=== PATIENT | male | born 1970 | race Caucasian/White ===

== ENCOUNTER 2017-07-03 08:56 | Outpatient (CLI) | payer MEDICAID ==
--- NOTE | 2017-07-06 13:07 | XRAY Report ---
THREE-VIEW RIGHT ELBOW: 07/03/2017 CLINICAL INDICATION: Pain. FINDINGS: AP, lateral, oblique views of the right elbow demonstrate no evidence of acute fracture or dislocation. Mild degenerative changes are seen, with small osteophytes. No effusion is present. IMPRESSION: MILD OSTEOARTHRITIS. NO EVIDENCE OF FRACTURE. [place]/ TD: 07/03/2017 16:30 [facility]
== END 2017-07-03 08:57 | disposition home or self-care (01) ==
LOC: DI.S 08:56
PROVIDERS: ATTEND Family Medicine
DX: M19.021 Primary osteoarthritis, right elbow (principal)

== ENCOUNTER 2017-10-11 09:38 | Outpatient (CLI) | payer MEDICAID ==
--- NOTE | 2017-10-11 10:56 | XRAY Report ---
TWO VIEW CHEST X-RAY: 10/11/2017 CLINICAL INDICATION: Shortness of breath. COMPARISON: 11/09/2015. FINDINGS: Frontal and lateral views of the chest demonstrate a normal cardiac silhouette. The lungs are clear. No effusion or pneumothorax is present. IMPRESSION: NORMAL CHEST, UNCHANGED. TD: 10/11/2017 10:55
== END 2017-10-11 09:39 | disposition home or self-care (01) ==
LOC: DI.S 09:38
PROVIDERS: ATTEND Nurse Practitioner Family
DX: R06.02 Shortness of breath (principal)
CPT/HCPCS: 71046

== ENCOUNTER 2018-12-13 09:28 | Outpatient (CLI) | payer MEDICAID ==
[2018-12-13 17:26] LABS: BASOPHILS # (AUTO) 0.1 10^3/uL (0.0-0.1); EOSINOPHILS # (AUTO) 0.1 10^3/uL (0.0-0.7); EOSINOPHILS % (AUTO) 2.6 %; LYMPHOCYTES # (AUTO) 2.2 10^3/uL (1.5-3.5); LYMPHOCYTES % (AUTO) 37.1 %; MEAN CORPUSCULAR HGB CONC 33.2 g/dL (32.0-36.0); MEAN CORPUSCULAR VOLUME 87.1 fL (80.0-94.0); MEAN PLATELET VOLUME 8.8 fL (7.4-11.4); MONOCYTES # (AUTO) 0.5 10^3/uL (0.0-1.0); NEUTROPHILS # (AUTO) 2.9 10^3/uL (1.5-6.6); NEUTROPHILS % (AUTO) 50.3 %; PLT - PLATELET COUNT 261 10^3/uL (130-450); RED BLOOD COUNT 5.17 10^6/uL (4.70-6.10); RED CELL DISTRIBUTION WIDTH 12.9 % (12.0-15.0); WHITE BLOOD COUNT 5.8 x10^3/uL (4.8-10.8)
[2018-12-13 17:32] LABS: ALBUMIN 4.7 g/dL (3.2-5.5); ALBUMIN/GLOBULIN RATIO 1.7 (1.0-2.2); BILIRUBIN,TOTAL 0.6 mg/dL (0.2-1.0); CALCIUM 9.6 mg/dL (8.5-10.3); CREATININE 0.9 mg/dL (0.6-1.2); CRP - C-REACTIVE PROTEIN 1.1 mg/dL (0-1.0); TOTAL PROTEIN 7.5 g/dL (6.7-8.2); URIC ACID 7.6 mg/dL (2.6-7.2)
== END 2018-12-13 09:29 | disposition home or self-care (01) ==
LOC: LAB.F 09:28
PROVIDERS: ATTEND Physician Assistant Medical
DX: I10 Essential (primary) hypertension (principal); M10.9 Gout, unspecified; M13.0 Polyarthritis, unspecified
CPT/HCPCS: 36415; 80053; 84550; 85025; 85651; 86140

== ENCOUNTER 2021-08-24 09:41 | Outpatient (CLI) | payer MEDICAID ==
[2021-08-24 14:47] LABS: ALBUMIN 4.8 g/dL (3.2-5.5); ALBUMIN/GLOBULIN RATIO 1.6 (1.0-2.2); BILIRUBIN,TOTAL 0.9 mg/dL (0.2-1.0); CALCIUM 9.4 mg/dL (8.5-10.3); CREATININE 0.9 mg/dL (0.6-1.2); POTASSIUM 4.6 mmol/L (3.5-5.0); TOTAL PROTEIN 7.8 g/dL (6.7-8.2)
[2021-08-24 15:10] LABS: BASOPHILS # (AUTO) 0.1 10^3/uL (0.0-0.1); BASOPHILS % (AUTO) 0.5 %; EOSINOPHILS # (AUTO) 0.1 10^3/uL (0.0-0.7); EOSINOPHILS % (AUTO) 0.9 %; HCT - HEMATOCRIT 46.2 % (42.0-52.0); HGB - HEMOGLOBIN 15.6 g/dL (14.0-18.0); LYMPHOCYTES % (AUTO) 20.4 %; MEAN CORPUSCULAR HEMOGLOBIN 30.2 pg (27.0-31.0); MEAN CORPUSCULAR HGB CONC 33.8 g/dL (32.0-36.0); MEAN CORPUSCULAR VOLUME 89.4 fL (80.0-94.0); MEAN PLATELET VOLUME 10.3 fL (7.4-11.4); MONOCYTES # (AUTO) 0.7 10^3/uL (0.0-1.0); MONOCYTES % (AUTO) 7.4 %; NEUTROPHILS % (AUTO) 70.6 %; PLT - PLATELET COUNT 252 10^3/uL (130-450); RED BLOOD COUNT 5.17 10^6/uL (4.70-6.10); RED CELL DISTRIBUTION WIDTH 12.1 % (12.0-15.0); WHITE BLOOD COUNT 9.9 x10^3/uL (4.8-10.8)
[2021-08-24 15:21] LABS: THYROID STIMULATING HORMONE 1.52 uIU/mL (0.34-5.60)
== END 2021-08-24 09:42 | disposition home or self-care (01) ==
LOC: LAB.S 09:41
PROVIDERS: ATTEND Physician Assistant Medical
DX: I10 Essential (primary) hypertension (principal)
CPT/HCPCS: 36415; 80050

== ENCOUNTER 2023-03-01 08:43 | Outpatient (CLI) | payer MEDICAID ==
[2023-03-01 15:19] LABS: BUN - BLOOD UREA NITROGEN 20 mg/dL (6-20); CALCIUM 9.5 mg/dL (8.5-10.3); CARBON DIOXIDE - CO2 24 mmol/L (21-32); CHLORIDE 106 mmol/L (101-111); CHOL/HDL RATIO 5.6 (<5.0); CHOLESTEROL 225 mg/dL; CREATININE 0.9 mg/dL (0.6-1.2); GFR - MDRD 89 (>89); GLUCOSE 102 mg/dL (70-100); HDL CHOLESTEROL 40 mg/dL; LDL CHOLESTEROL,CALCULATED 156 mg/dL; LDL/HDL RATIO 3.9 (<3.6); POTASSIUM 4.7 mmol/L (3.5-5.0); SODIUM 136 mmol/L (135-145); TRIGLYCERIDES 143 mg/dL; VLDL CHOLESTEROL 29 mg/dL
[2023-03-03 11:13] LABS: ALDOLASE 4.1 U/L (3.3-10.3)
== END 2023-03-01 08:44 | disposition home or self-care (01) ==
LOC: LAB.S 08:43
PROVIDERS: ATTEND Internal Medicine Cardiovascular Disease
DX: I10 Essential (primary) hypertension (principal); R06.09 Other forms of dyspnea; R94.31 Abnormal electrocardiogram [ECG] [EKG]; R00.2 Palpitations
CPT/HCPCS: 36415; 80048; 80061; 82085; 83721; 83835

== ENCOUNTER 2023-03-06 08:00 | Outpatient (CLI) | payer MEDICAID ==
--- NOTE | 2023-03-06 16:37 | XRAY Report ---
PROCEDURE: Hand 3 View RT INDICATIONS: RIGHT HAND PAIN TECHNIQUE: 3 views of the hand(s) acquired. COMPARISON: None. FINDINGS: Bones: No fractures or dislocations. No suspicious bony lesions. . Minimal first CMC narrowing wit hout erosions.. Soft tissues: No suspicious soft tissue calcifications or masses. IMPRESSION: Very minimal first CMC degenerative narrowing. Reviewed by: Shawna Ramirez MD on 03/06/2023 4:35 PM PDT Approved by: Shawna Ramirez MD on 03/06/2023 4:35 PM PDT Station ID: [id number]
== END 2023-03-06 23:59 | disposition home or self-care (01) ==
LOC: DI.S 08:00
PROVIDERS: ATTEND Physician Assistant
DX: M18.11 Unilateral primary osteoarthritis of first carpometacarpal joint, right hand (principal)

== ENCOUNTER 2023-05-20 11:10 | Emergency (ER) | payer MEDICAID ==
--- NOTE | 2023-05-20 11:57 | ED Physician Documentation ---
PD HPI URI - Stated complaint Stated Complaint: FEVER/BODY ACHES/HEAD PX - Chief complaint Chief Complaint: General - History obtained from History obtained from: Patient - History of Present Illness Timing - onset: How many weeks ago (2) Timing duration: Weeks (2) Timing details: Abrupt onset, Still present (he was initially ill 2 weeks ago with fevers, chills, some cough, body aches and weakness for several days. Slow improvement over few days and then was feeling moderately better though still weak and achy for 4-5 days. Now with recurrence of aches/weakness/ fevers again the past 2 days.), Waxing and waning Associated symptoms: Fever, Chills. No: Nasal congestion, Rhinorrhea, Sore throat, Dry cough, Productive cough, NVD Contributing factors: Travel (prior to illness initially, he and were in [facility] for a week. No camping. Not aware of skin rashes, sores, tick bites, wounds with infections, etc. Not drinking groundwater.). No: Sick contact Improves by: Medication (brief improvement with Tylenol.) Similar symptoms before: No diagnosis (tested neg for COVID with initial illness. No other testing. Presumed flu-like illness.) Review of Systems Constitutional: reports: Fever, Chills, Myalgias, Fatigue Nose: denies: Rhinorrhea / runny nose, Congestion Throat: denies: Sore throat Cardiac: denies: Chest pain / pressure Respiratory: denies: Cough GI: reports: Abdominal Pain (some abd pain upper to left abd.), Nausea. denies: Abdominal Swelling, Vomiting, Constipation, Diarrhea : reports: Dysuria (stings when urinates and states it is darker color the past 2 days.). denies: Frequency Skin: denies: Rash, Lesions Neurologic: reports: Generalized weakness. denies: Near syncope, Altered mental status, Headache, Head injury PD PAST MEDICAL HISTORY - Past Medical History Past Medical History: Yes Cardiovascular: Hypertension Respiratory: None Neuro: None Endocrine/Autoimmune: None Musculoskeletal: Gout - Past Surgical History Past Surgical History: No - Present Medications Home Medications: Ambulatory Orders Medication Instructions Recorded Confirmed Lisinopril [Zestril] 20 mg PO DAILY 05/20/23 05/20/23 allopurinoL [Zyloprim] 100 mg PO DAILY 05/20/23 05/20/23 - Allergies Allergies/Adverse Reactions: Allergies Allergy/AdvReac Type Severity Reaction Status Date / Time No Known Drug Allergies Allergy Verified 05/20/23 11:36 - Social History Does the pt smoke?: No Smoking Status: Never smoker Does the pt drink ETOH?: Yes Does the pt have substance abuse?: No - Immunizations Immunizations are current?: No PD ED PE NORMAL - Vitals Vital signs reviewed: Yes - General General: Alert and oriented X 3, No acute distress, Well developed/nourished - HEENT HEENT: Ears normal, Pharynx benign - Neck Neck: Supple, no meningeal sign, No adenopathy - Cardiac Cardiac: RRR, No murmur - Respiratory Respiratory: Clear bilaterally - Abdomen Abdomen: Normal bowel sounds, Soft, Non distended, No organomegaly, Other (tender upper abd to left with some mild local guarding. ) - Male Male : Deferred - Rectal Rectal: Deferred - Back Back: No CVA TTP - Derm Derm: Normal color, Warm and dry, No rash - Extremities Extremities: Normal ROM s pain, No edema, No calf tenderness / cord - Neuro Neuro: Alert and oriented X 3, No motor deficit, Normal speech Results - Vitals Vitals: Vital Signs - 24 hr 05/20/23 05/20/23 05/20/23 11:31 14:51 15:58 Temperature 36.8 C 39.6 C H 39.1 C H Heart Rate 97 144 H Respiratory 15 18 Rate Blood Pressure 107/70 133/95 H O2 Saturation 99 99 05/20/23 17:05 Temperature 37.7 C Heart Rate 85 Respiratory 18 Rate Blood Pressure 101/71 O2 Saturation 100 Oxygen O2 Source Room air - Labs Labs: Laboratory Tests 05/20/23 05/20/23 05/20/23 12:54 13:18 13:18 WBC RBC Hgb Hct MCV MCH MCHC RDW Plt Count MPV Neut # (Auto) Lymph # (Auto) Mccone # (Auto) Eos # (Auto) Baso # (Auto) Absolute Nucleated RBC Nucleated RBC % Sodium 129 L Potassium 4.8 H Chloride 97 L Carbon Dioxide 19 L Anion Gap 13.0 BUN 16 Creatinine 1.2 Estimated GFR (MDRD) 64 L Glucose 123 H Lactic Acid Calcium 9.4 Total Bilirubin 0.9 AST 18 ALT 32 Alkaline Phosphatase 63 Total Protein 8.3 Albumin 4.5 Globulin 3.8 Albumin/Globulin Ratio 1.2 Urine Color YELLOW Urine Clarity CLEAR Urine pH 7.0 Ur Specific [place] 1.010 Urine Protein 30 H Urine Glucose (UA) NEGATIVE Urine Ketones NEGATIVE Urine Occult Blood NEGATIVE Urine Nitrite NEGATIVE Urine Bilirubin NEGATIVE Urine Urobilinogen 0.2 (NORMAL) Ur Leukocyte Esterase NEGATIVE Urine RBC 0-5 Urine WBC 0-3 Ur Squamous Epith Cells FEW Squamous Urine Bacteria Rare Urine Mucus Moderate Strands Ur Microscopic Review INDICATED Urine Culture Comments NOT INDICATED Nasal Adenovirus (PCR) NOT DETECTED Nasal B. parapertussis DNA (PCR) NOT DETECTED Nasal Coronavir 229E PCR NOT DETECTED Nasal Coronavir HKU1 PCR NOT DETECTED Nasal Coronavir NL63 PCR NOT DETECTED Nasal Coronavir OC43 PCR NOT DETECTED Nasal Enterovir/Rhinovir PCR NOT DETECTED Nasal Influenza B PCR NOT DETECTED Nasal Influenza A PCR NOT DETECTED Nasal Parainfluen 1 PCR NOT DETECTED Nasal Parainfluen 2 PCR NOT DETECTED Nasal Parainfluen 3 PCR NOT DETECTED Nasal Parainfluen 4 PCR NOT DETECTED Nasal RSV (PCR) NOT DETECTED Nasal B.pertussis DNA PCR NOT DETECTED Nasal C.pneumoniae (PCR) NOT DETECTED Ji Human Metapneumo PCR NOT DETECTED Nasal M.pneumoniae (PCR) NOT DETECTED Nasal SARS-CoV-2 (PCR) NOT DETECTED 05/20/23 05/20/23 14:15 14:15 WBC 13.2 H RBC 4.74 Hgb 13.7 L Hct 41.0 L MCV 86.5 MCH 28.9 MCHC 33.4 RDW 12.8 Plt Count 201 MPV 8.7 Neut # (Auto) 11.0 H Lymph # (Auto) 1.2 L Mccone # (Auto) 0.9 Eos # (Auto) 0.0 Baso # (Auto) 0.1 Absolute Nucleated RBC 0.00 Nucleated RBC % 0.0 Sodium Potassium Chloride Carbon Dioxide Anion Gap BUN Creatinine Estimated GFR (MDRD) Glucose Lactic Acid 1.6 Calcium Total Bilirubin AST ALT Alkaline Phosphatase Total Protein Albumin Globulin Albumin/Globulin Ratio Urine Color Urine Clarity Urine pH Ur Specific [place] Urine Protein Urine Glucose (UA) Urine Ketones Urine Occult Blood Urine Nitrite Urine Bilirubin Urine Urobilinogen Ur Leukocyte Esterase Urine RBC Urine WBC Ur Squamous Epith Cells Urine Bacteria Urine Mucus Ur Microscopic Review Urine Culture Comments Nasal Adenovirus (PCR) Nasal B. parapertussis DNA (PCR) Nasal Coronavir 229E PCR Nasal Coronavir HKU1 PCR Nasal Coronavir NL63 PCR Nasal Coronavir OC43 PCR Nasal Enterovir/Rhinovir PCR Nasal Influenza B PCR Nasal Influenza A PCR Nasal Parainfluen 1 PCR Nasal Parainfluen 2 PCR Nasal Parainfluen 3 PCR Nasal Parainfluen 4 PCR Nasal RSV (PCR) Nasal B.pertussis DNA PCR Nasal C.pneumoniae (PCR) Ji Human Metapneumo PCR Nasal M.pneumoniae (PCR) Nasal SARS-CoV-2 (PCR) - Rads (name of study) abd/pelvis CT Relevant Findings:: Prelim report reviewed (single lymph node noted enlarge at 2.8 cm. No acute process otherwise. diverticulosis without diverticulitis. fatty liver. ), EMP independent interpretation of test PD Medical Decision Making - ED course Complexity details: considered differential (fever and viral type symptoms 2 weeks ago for 4-5 days then moderately improved but weak/tired until the past 2 days with fevers/aches/malaise again. No URI symptoms. Does have some upper left abd pain. ), d/w patient Reviewed Lab Results: WBC is elevated at 13K but not high enough for concern of leukemoid type process. Single lymph node on CT infraportal. Does not have enough appearance to think lymphomatous. UA without infection and kidney normal on CT. Lower lungs clear on CT and no dyspnea/cough symptoms. Viral nasal PCR negative. Blood cu ltures still pending. Io not identify focal source for infection nor apparent bacterial cause of fever/symptoms. I would hold on antibiotics without a source identified. Pt and are good with this. No serious cause of illness noted at this time. Consider just a second viral illness versus some other source that would declare itself. Has some abd pain mildly but no abn seen on CT. Has diverticula but no diverticulitis and I would think an infection of this sort to the point of 39.2 fever would be visible on CT. Departure - Departure Disposition: 01 Home, Self Care Clinical Impression: Fever of unknown origin Condition: Stable Record reviewed to determine appropriate education?: Yes Follow-Up: Michelle Portillo ARNP [Primary Care Provider] - Comments: It is unclear the cause of your symptoms and fever. The respiratory panel test is negative for the viruses tested. There are other viruses other than those and certainly this could be a viral type syndrome. Currently you are negative for the major ones such as COVID, flu, RSV, rhinovirus and several others. Your blood test shows a mildly elevated white count consistent with an infectious process. It does not excessively elevated. Your blood test showed normal liver enzymes and pancreas markers. Your kidney function is slightly elevated compared to prior which goes along with under hydration. Your sodium level is slightly low as well which indicates similar as well. Your electrolytes otherwise were normal. Your blood sugar was in the normal range at 123. Your urine does not show any signs of infection. Your CT scan showed some areas of diverticula but no visible diverticulitis. The kidneys appear normal without any signs of infection or inflammation. Other organs are good as well. There is a mildly fatty liver. There was a single isolated mesenteric lymph node of 2 cm which is not of the size to be pathologic or concerning. It was the only visible lymph node. The lower part of the lungs did not show any signs of pneumonia. At this point its not clear the cause. I would not identify any obvious bacterial infection as such I do not feel antibiotics are indicated and may just obscure if its only inappropriately treated. I would consider more viral type illness at this point see how you do over the next few days. Stay well- hydrated. Continue Tylenol and/or ibuprofen for fevers and pains. We do have blood cultures pending and we will call you if those show positive in the next day or so. Return if increased symptoms of any sort that would localize an area of concern or infection. Forms: PCP List Discharge Date/Time: 05/20/23 17:14
[2023-05-20] MEDS ORDERED: KETOROLAC 15 MG/ML VIAL IVP STA (12:43)
[2023-05-20] MEDS ORDERED: SODIUM CHLORIDE 0.9% 1,000 ML IV STA (12:43)
[2023-05-20 13:18] LABS: ALBUMIN 4.5 g/dL (3.2-5.5)
[2023-05-20 13:24] LABS: POTASSIUM 4.8 mmol/L (3.5-4.5)
[2023-05-20 13:25] LABS: ALBUMIN/GLOBULIN RATIO 1.2 (1.0-2.2); BILIRUBIN,TOTAL 0.9 mg/dL (0.2-1.0); CALCIUM 9.4 mg/dL (8.5-10.3); CREATININE 1.2 mg/dL (0.6-1.3); TOTAL PROTEIN 8.3 g/dL (6.4-8.9)
[2023-05-20 13:28] LABS: BILIRUBIN,URINE NEGATIVE (NEGATIVE); CLARITY,URINE CLEAR (CLEAR); GLUCOSE, URINE (UA) NEGATIVE (NEGATIVE); KETONES,URINE (UA) NEGATIVE (NEGATIVE); LEUKOCYTE ESTERASE, URINE NEGATIVE (NEGATIVE); NITRITE,URINE NEGATIVE (NEGATIVE); OCCULT BLOOD,URINE NEGATIVE (NEGATIVE); PROTEIN,URINE 30 mg/dL (NEGATIVE); UROBILINOGEN,URINE 0.2 (NORMAL) E.U./dL (NORMAL)
[2023-05-20 13:38] LABS: BACTERIA,URINE Rare /HPF (None Seen); MUCUS,URINE Moderate Strands; RBC,URINE 0-5 /HPF (0-5); SQUAMOUS EPITHELIAL CELL,UR FEW Squamous (<= Few); WBC,URINE 0-3 /HPF (0-3)
[2023-05-20 14:21] LABS: BASOPHILS # (AUTO) 0.1 10^3/uL (0.0-0.1); BASOPHILS % (AUTO) 0.5 %; HGB - HEMOGLOBIN 13.7 g/dL (14.0-18.0); LYMPHOCYTES # (AUTO) 1.2 10^3/uL (1.5-3.5); LYMPHOCYTES % (AUTO) 9.1 %; MEAN CORPUSCULAR HEMOGLOBIN 28.9 pg (27.0-31.0); MEAN CORPUSCULAR HGB CONC 33.4 g/dL (32.0-36.0); MEAN CORPUSCULAR VOLUME 86.5 fL (80.0-94.0); MEAN PLATELET VOLUME 8.7 fL (7.4-11.4); MONOCYTES # (AUTO) 0.9 10^3/uL (0.0-1.0); MONOCYTES % (AUTO) 6.9 %; NEUTROPHILS % (AUTO) 82.8 %; PLT - PLATELET COUNT 201 10^3/uL (130-450); RED BLOOD COUNT 4.74 10^6/uL (4.70-6.10); RED CELL DISTRIBUTION WIDTH 12.8 % (12.0-15.0); WHITE BLOOD COUNT 13.2 x10^3/uL (4.8-10.8)
[2023-05-20 14:25] LABS: B. PARAPERTUSSIS- RESP PCR PAN NOT DETECTED; B. PERTUSSIS- RESP PCR PANEL NOT DETECTED; C. PNEUMONIAE- RESP PCR PANEL NOT DETECTED; CORONAVIRUS 229E-RESP PCR NOT DETECTED; CORONAVIRUS HKU1-RESP PCR NOT DETECTED; CORONAVIRUS NL63-RESP PCR NOT DETECTED; CORONAVIRUS OC43-RESP PCR NOT DETECTED; HUMAN METAPNEUMOVIRUS NOT DETECTED; INFLUENZA A- RESP PCR PANEL NOT DETECTED; INFLUENZA B - RESP PCR PANEL NOT DETECTED; M. PNEUMONIAE- RESP PCR PANEL NOT DETECTED; PARAINFLUENZA VIRUS 1 NOT DETECTED; PARAINFLUENZA VIRUS 2 NOT DETECTED; PARAINFLUENZA VIRUS 3 NOT DETECTED; PARAINFLUENZA VIRUS 4 NOT DETECTED; RHINOVIRUS/ENTEROVIRUS NOT DETECTED; RSV- RESP PCR PANEL NOT DETECTED; SARS-CoV-2 -RESP PCR PANEL NOT DETECTED
[2023-05-20] MEDS ORDERED: ACETAMINOPHEN 325 MG TABLET PO STA (15:01)
--- NOTE | 2023-05-20 16:00 | CT Report ---
PROCEDURE: ABDOMEN/PELVIS W INDICATIONS: upper abd pain and fever CONTRAST: 100ml omni 300 TECHNIQUE: After the administration of IV contrast, 5 mm thick sections acquired from the diaphragms to the symp hysis. 5 mm thick coronal and sagittal reformats were acquired. For radiation dose reduction, the f ollowing was used: automated exposure control, adjustment of mA and/or kV according to patient size. COMPARISON: None. FINDINGS: Image quality: Diagnostic. Lung bases and heart: Unremarkable. Liver: No solid mass. The liver is prominent in size and demonstrates diffuse fatty liver infiltratio n. Gallbladder and biliary tree: Within normal limits. No inflammatory change can be seen. Spleen: No splenomegaly. Pancreas: No pancreatic ductal dilation. Adrenals: No adrenal nodule. Kidneys and ureters: No hydronephrosis. No renal cystic lesion which requires follow up. No solid mas s. Bowel and peritoneum: No bowel distension. No pathologic free fluid. Diverticulosis can be seen, with out kylie findings of active diverticulitis. Lymph nodes: Enlarged portacaval lymph node is seen, measuring 2.4 x 1.2 cm in greatest axial dimensi on. No large retroperitoneal lymph nodes are seen. Vessels: No infrarenal aortic aneurysm. PELVIS Reproductive organs: Unremarkable. Bladder: No abnormal wall thickening, accounting for underdistension. Pelvic lymph nodes: No pelvic adenopathy by size criteria. Bones: No aggressive osseous abnormality. Focal L5-S1 degenerative change is seen. Milder degenerativ e changes are seen elsewhere. Other: Mild bilateral fat-containing inguinal hernias are seen. IMPRESSION: No imaging explanation is found for the patient's presenting symptoms. There is an enlarged portacaval lymph node seen, without additional abnormal lymph nodes identified. Attention should be paid to this focus on any future follow-up studies. Additional findings: Enlarged, fatty liver. Diverticulosis, without findings of active diverticulitis. Focal L5-S1 degenerative change Mild bilateral fat-containing inguinal hernias Reviewed by: Yunior Knox MD on 05/20/2023 2:59 PM AKDT Approved by: Yunior Knox MD on 05/20/2023 2:59 PM AKDT Station ID: [id number]
[2023-05-20] MEDS ORDERED: iohexoL-300 100 ML VIAL IVP ONE (16:38)
[2023-05-20 17:12] VITALS: BP 101/71; O2SAT 100
== END 2023-05-20 17:14 | disposition home or self-care (01) ==
LOC: ED 11:10
DX: R50.9 Fever, unspecified (principal); I10 Essential (primary) hypertension; Z20.822 Contact with and (suspected) exposure to COVID-19; Z79.899 Other long term (current) drug therapy
CPT/HCPCS: 36415; 74177; 80053; 81001; 83605; 85025; 87040; 87633; 96374; 99283; 99284; A9270; Q9967; 81003; 87086

== ENCOUNTER 2023-06-02 18:09 | Emergency (ER) | payer MEDICAID ==
--- NOTE | 2023-06-02 19:02 | ED Physician Documentation ---
History of Present Illness - Stated complaint Stated Complaint: HEART PALPITATIONS/FEVER/BODY PX - Chief complaint Chief Complaint: Fever - History obtained from History obtained from: Patient - Additonal information Additional information: This is a 52-year-old male who presents with intermittent fever for the last months. He was seen here on May 20 for similar symptoms and had a fairly comprehensive work-up at that time including blood cultures x2 which were negative, and a CT scan that showed diverticulosis without diverticulitis and a solitary lymph node that was enlarged but no other acute findings. Patient states that his symptoms subsided for short time and then have recurred periodically with fever and deep bone pain in his legs. He also feels very sluggish when he has a fever. He has developed a mild cough, no chest pain or difficulty breathing, denies any abdominal pain nausea vomiting or diarrhea, no dysuria urgency or frequency though states that he did notice some "swirly white stuff" in his urine at times. He denies any concern for STI. He has not had any scrotal pain or swelling, no penile discharge. Patient has not had any international travel though did go hunting in a side of [place] and mid- April prior to the time that symptoms started. He denies any atypical water or food intake at that time, and no bites or stings to his knowledge. He did se e some ticks but stated that they were all large dog ticks. He does not recall getting any tick bites. He did help instruct one of his children to clean a deer but the patient himself did not touch any of the tissue. [place] with a number of dogs and donkeys but no other animals. His only interaction with the donkeys was to clean their hooves but states that was very minimal contact. No known sick contacts at home. Of note, the patient has a severe fear of blood draws and typically requires Valium prior to blood draws. He required 10 mg oral Valium last time prior to blood draw and request that he is premedicated today. Review of Systems Constitutional: reports: Fever, Chills, Myalgias, Fatigue, Sweats. denies: Weight Loss Eyes: reports: Reviewed and negative Ears: reports: Reviewed and negative Nose: reports: Reviewed and negative Throat: reports: Reviewed and negative Cardiac: reports: Reviewed and negative Respiratory: reports: Cough. denies: Dyspnea, Hemoptysis, Wheezing GI: reports: Reviewed and negative : reports: Reviewed and negative Skin: reports: Reviewed and negative Musculoskeletal: reports: Extremity pain, Joint pain. denies: Neck pain, Back pain, Extremity swelling, Joint swelling, Pain with weight bearing Neurologic: reports: Reviewed and negative Psychiatric: reports: Reviewed and negative Endocrine: reports: Reviewed and negative Immunocompromised: reports: Reviewed and negative PD PAST MEDICAL HISTORY - Past Medical History Past Medical History: Yes Cardiovascular: Hypertension Respiratory: None Neuro: None Endocrine/Autoimmune: None Musculoskeletal: Gout - Past Surgical History Past Surgical History: No - Present Medications Home Medications: Ambulatory Orders Medication Instructions Recorded Confirmed Lisinopril [Zestril] 20 mg PO BID 05/20/23 06/02/23 allopurinoL [Zyloprim] 100 mg PO DAILY 05/20/23 06/02/23 - Allergies Allergies/Adverse Reactions: Allergies Allergy/AdvReac Type Severity Reaction Status Date / Time No Known Drug Allergies Allergy Verified 05/20/23 11:36 - Social History Does the pt smoke?: No Smoking Status: Never smoker Does the pt drink ETOH?: Yes Does the pt have substance abuse?: No - Immunizations Immunizations are current?: No PD ED PE NORMAL - Vitals Vital signs reviewed: Yes - General General: Alert and oriented X 3, No acute distress, Well developed/nourished - HEENT HEENT: Atraumatic, Moist mucous membranes, Pharynx benign - Neck Neck: Supple, no meningeal sign, No adenopathy, No JVD - Cardiac Cardiac: RRR, No murmur, No gallop, No rub, Strong equal pulses - Respiratory Respiratory: No respiratory distress, Clear bilaterally - Abdomen Abdomen: Normal bowel sounds, Soft, Non tender, Non distended - Back Back: No CVA TTP, No spinal TTP - Derm Derm: Normal color, Warm and dry, No rash - Extremities Extremities: No deformity, No tenderness to palpate, Normal ROM s pain, No edema, No calf tenderness / cord - Neuro Neuro: Alert and oriented X 3, chaplain 2-12 intact, No motor deficit, No sensory deficit, Normal speech Eye Opening: Spontaneous Motor: Obeys Commands Verbal: Oriented GCS Score: 15 - Psych Psych: Normal mood, Normal affect Results - Vitals Vitals: Vital Signs - 24 hr 06/02/23 06/02/23 06/02/23 18:14 20:19 21:00 Temperature 38.5 C H 38.3 C H Heart Rate 103 H 87 88 Respiratory 16 24 22 Rate Blood Pressure 113/79 128/74 101/62 O2 Saturation 98 97 99 06/02/23 22:15 Temperature Heart Rate 86 Respiratory 20 Rate Blood Pressure O2 Saturation 97 Oxygen O2 Source Room air - EKG (time done) No standard instances EKG releavant findings:: EKG personally interpreted by author of this note. Relevant findings are: Rate: Rate (enter#) (92) Rhythm: NSR [place]: Normal Intervals: Normal CO QRS: Normal Ischemia: Normal ST segments Computer interpretation: Agree with computer - Labs Labs: Laboratory Tests 06/02/23 06/02/23 06/02/23 19:34 20:25 20:25 WBC 10.9 H RBC 4.21 L Hgb 12.2 L Hct 36.0 L MCV 85.5 MCH 29.0 MCHC 33.9 RDW 13.4 Plt Count 208 MPV 9.0 Neut # (Auto) 7.9 H Lymph # (Auto) 1.6 Door # (Auto) 1.2 H Eos # (Auto) 0.0 Baso # (Auto) 0.1 Absolute Nucleated RBC 0.00 Nucleated RBC % 0.0 ESR Sodium 132 L Potassium 4.6 H Chloride 99 L Carbon Dioxide 26 Anion Gap 7.0 BUN 16 Creatinine 1.1 Estimated GFR (MDRD) 71 L Glucose 117 H Lactic Acid Calcium 9.5 Total Bilirubin 0.9 AST 13 ALT 29 Alkaline Phosphatase 58 C-Reactive Protein Total Protein 7.2 Albumin 4.5 Globulin 2.7 Albumin/Globulin Ratio 1.7 Lipase 18 TSH Urine Color YELLOW Urine Clarity CLEAR Urine pH 6.0 Ur Specific [place] 1.010 Urine Protein NEGATIVE Urine Glucose (UA) NEGATIVE Urine Ketones NEGATIVE Urine Occult Blood NEGATIVE Urine Nitrite NEGATIVE Urine Bilirubin NEGATIVE Urine Urobilinogen 0.2 (NORMAL) Ur Leukocyte Esterase NEGATIVE Ur Microscopic Review NOT INDICATED Urine Culture Comments NOT INDICATED HIV 1&2 Antibody Rapid 06/02/23 06/02/23 06/02/23 20:25 20:25 20:25 WBC RBC Hgb Hct MCV MCH MCHC RDW Plt Count MPV Neut # (Auto) Lymph # (Auto) Door # (Auto) Eos # (Auto) Baso # (Auto) Absolute Nucleated RBC Nucleated RBC % ESR Sodium Potassium Chloride Carbon Dioxide Anion Gap BUN Creatinine Estimated GFR (MDRD) Glucose Lactic Acid 1.0 Calcium Total Bilirubin AST ALT Alkaline Phosphatase C-Reactive Protein 9.4 H Total Protein Albumin Globulin Albumin/Globulin Ratio Lipase TSH Urine Color Urine Clarity Urine pH Ur Specific [place] Urine Protein Urine Glucose (UA) Urine Ketones Urine Occult Blood Urine Nitrite Urine Bilirubin Urine Urobilinogen Ur Leukocyte Esterase Ur Microscopic Review Urine Culture Comments HIV 1&2 Antibody Rapid NEGATIVE 06/02/23 06/02/23 20:25 20:27 WBC RBC Hgb Hct MCV MCH MCHC RDW Plt Count MPV Neut # (Auto) Lymph # (Auto) Door # (Auto) Eos # (Auto) Baso # (Auto) Absolute Nucleated RBC Nucleated RBC % ESR 62 H Sodium Potassium Chloride Carbon Dioxide Anion Gap BUN Creatinine Estimated GFR (MDRD) Glucose Lactic Acid Calcium Total Bilirubin AST ALT Alkaline Phosphatase C-Reactive Protein Total Protein Albumin Globulin Albumin/Globulin Ratio Lipase TSH 2.47 Urine Color Urine Clarity Urine pH Ur Specific [place] Urine Protein Urine Glucose (UA) Urine Ketones Urine Occult Blood Urine Nitrite Urine Bilirubin Urine Urobilinogen Ur Leukocyte Esterase Ur Microscopic Review Urine Culture Comments HIV 1&2 Antibody Rapid - Rads (name of study) No standard instances Relevant Findings:: Final report received PD Medical Decision Making - ED course Complexity details: reviewed old records, reviewed results, re-evaluated patient, considered differential, d/w patient, d/w family ED course: This is a 52-year-old male who has had intermittent fevers over the course of the last month often accompanied by generalized arthralgias and myalgias. He p resents today with a fever and body aches. On arrival here, he is febrile but otherwise stable, his physical exam is essentially unremarkable, he has no signs of URI or ear/sinus infection, no meningeal signs, he has clear lungs,and nl lung exam. His abdomen is soft and nontender and he has no signs of an acute abdominal process. He has no urinary symptoms or prostate sx no rectal pain, no concern for STI. He has no rashes, no signs of gout or joint inflammation, no bites ticks or stings. He has not traveled internationally, he has had some contact with animals though minimal as described in HPI. We did do another sepsis work-up similar to his last work-up which was reassuring, and labs are generally stable, he has a white count of 10.9, stable H&H, his CMP is unrevealing. I did add an HIV test which was negative, his CBC ESR and CRP are nonspecific but mildly elevated, his lactate is normal. Blood cultures were collected. Urinalysis is negative, chest x-ray is negative. I reviewed his prior blood cultures which were negative. We did collect and send out a Lyme disease screen as patient is an active outdoorsman though no known deer tick contact. A hepatitis panel is pending though no sx of this. I did not image his abdomen as he is having no abdominal symptoms at this time. I have low suspicion for meningitis given his lack of symptoms and reassuring physical exam therefore have not proceeded with a lumbar puncture. It is unclear what is causing the patient's fevers at this time whether it is a viral syndrome, rheumatologic issue, or other inflammatory process. I do not believe that he has any acute surgical intervention or bacterial infection at this time that requires antibiotics and I do think he is stable for discharge home. I have advised him to follow-up with his PCP, and he may benefit from rheumatologic Or ID evaluation if ongoing and it no identified cause of his intermittent fevers. I advised that he can continue Tylenol and ibuprofen only if symptomatic fever. I discussed return precautions at any point time if worsening symptoms or if more focal symptoms arise that could point to the cause of his fevers. Departure - Departure Disposition: 01 Home, Self Care Clinical Impression: Fever Qualifiers: Fever type: unspecified Qualified Code(s): R50.9 - Fever, unspecified Condition: Good Instructions: ED Fever Unconf Cause Follow-Up: [facility] [Provider Group] Comments: It is unclear what is causing your fevers. We have done several sets of testing all of which have been reassuring thus far. We did collect some blood tests today and will not have the results for several more days. We will notify you if necessary otherwise please find results on your chart or call for results. If you develop new or worsening symptoms, please return to the ER. Please follow up with primary doctor as soon as available and consider following up with flight control specialist if ongoing symptoms. You may resume tylenol and or ibuprofen for fever. Forms: PCP List Discharge Date/Time: 06/02/23 22:16
--- NOTE | 2023-06-02 19:10 | XRAY Report ---
PROCEDURE: Chest 1 View X-Ray INDICATIONS: chest pain TECHNIQUE: One view of the chest was acquired. COMPARISON: None. FINDINGS: Surgical changes and devices: None. Lungs and pleura: No pleural effusions or pneumothorax. Lungs are clear. Mediastinum: Mediastinal contours appear normal. Heart size is normal. Bones and chest wall: No suspicious bony lesions. Overlying soft tissues appear unremarkable. IMPRESSION: No acute cardiopulmonary process. Reviewed by: Shawna Ramirez MD on 06/02/2023 7:09 PM [facility] Approved by: Shawna Ramirez MD on 06/02/2023 7:09 PM [facility] Station ID: [id number]
[2023-06-02] MEDS: diazePAM INJ 5 MG/ML SYRINGE IM STA (19:31)
[2023-06-02 19:43] LABS: BILIRUBIN,URINE NEGATIVE (NEGATIVE); GLUCOSE, URINE (UA) NEGATIVE (NEGATIVE); KETONES,URINE (UA) NEGATIVE (NEGATIVE); LEUKOCYTE ESTERASE, URINE NEGATIVE (NEGATIVE); NITRITE,URINE NEGATIVE (NEGATIVE); OCCULT BLOOD,URINE NEGATIVE (NEGATIVE); PROTEIN,URINE NEGATIVE (NEGATIVE); UROBILINOGEN,URINE 0.2 (NORMAL) E.U./dL (NORMAL)
[2023-06-02 19:45] LABS: CLARITY,URINE CLEAR (CLEAR)
[2023-06-02 20:32] LABS: BASOPHILS # (AUTO) 0.1 10^3/uL (0.0-0.1); BASOPHILS % (AUTO) 0.6 %; EOSINOPHILS % (AUTO) 0.1 %; HGB - HEMOGLOBIN 12.2 g/dL (14.0-18.0); LYMPHOCYTES # (AUTO) 1.6 10^3/uL (1.5-3.5); LYMPHOCYTES % (AUTO) 15.1 %; MEAN CORPUSCULAR HGB CONC 33.9 g/dL (32.0-36.0); MEAN CORPUSCULAR VOLUME 85.5 fL (80.0-94.0); MONOCYTES # (AUTO) 1.2 10^3/uL (0.0-1.0); MONOCYTES % (AUTO) 10.9 %; NEUTROPHILS # (AUTO) 7.9 10^3/uL (1.5-6.6); NEUTROPHILS % (AUTO) 72.8 %; PLT - PLATELET COUNT 208 10^3/uL (130-450); RED BLOOD COUNT 4.21 10^6/uL (4.70-6.10); RED CELL DISTRIBUTION WIDTH 13.4 % (12.0-15.0); WHITE BLOOD COUNT 10.9 x10^3/uL (4.8-10.8)
[2023-06-02 20:56] LABS: ALBUMIN 4.5 g/dL (3.2-5.5); ALBUMIN/GLOBULIN RATIO 1.7 (1.0-2.2); BILIRUBIN,TOTAL 0.9 mg/dL (0.2-1.0); CALCIUM 9.5 mg/dL (8.5-10.3); CREATININE 1.1 mg/dL (0.6-1.3); POTASSIUM 4.6 mmol/L (3.5-4.5); TOTAL PROTEIN 7.2 g/dL (6.4-8.9)
[2023-06-02 21:25] LABS: HIV RAPID SCREEN NEGATIVE (NEGATIVE)
[2023-06-02 21:29] VITALS: BP 101/62
[2023-06-02 22:17] VITALS: O2SAT 97
[2023-06-05 09:08] LABS: HBsAG SCREEN Negative (Negative); HCV AB Non Reactive (Non Reactive); HEPATITIS B CORE IGM AB Negative (Negative)
[2023-06-07 11:10] LABS: LYME IGG CIA Positive (Negative); LYME IGM CIA Positive (Negative); LYME TOTAL AB CIA Positive (Negative)
== END 2023-06-02 22:16 | disposition home or self-care (01) ==
LOC: ED 18:09
DX: R50.9 Fever, unspecified (principal); I10 Essential (primary) hypertension
CPT/HCPCS: 36415; 80053; 80074; 81001; 81003; 83605; 83690; 84443; 85025; 85651; 86140; 86618; 86703; 87040; 87086; 93005; 96372; 99284